=== PATIENT | female | born 1970 | race Caucasian/White ===

== ENCOUNTER 2020-11-21 03:54 | Emergency (ER) | payer OTHER ==
--- NOTE | 2020-11-21 02:55 | EDM.PDOC ---
ED HPI GENERAL MEDICAL PROBLEM - General Stated Complaint: TOOTH PAIN Time Seen by Provider: 11/21/20 03:54 Source of Information: Reports: Patient History Limitations: Reports: No Limitations - History of Present Illness INITIAL COMMENTS - FREE TEXT/NARRATIVE: 50-year-old female presents for dental pain. Patient notes history of root canal on her left upper tooth in 2018. She notes that since Sunday, 2 days ago, she has been experiencing pain in that side of her mouth. She has an appointment with a dentist next week, but overnight the pain became unbearable prompting her to come to the emergency department. She notes some pain with swallowing but denies any difficulty swallowing, difficulty tolerating her secretions, difficulty breathing, fevers. L upper tooth Pain Score (Numeric/FACES): 10 - Related Data Allergies Allergy/AdvReac Type Severity Reaction Status Date / Time penicillin V Allergy Cannot Verified 11/21/20 04:01 Remember Home Meds: Home Meds Acetaminophen/oxyCODONE [Percocet 325-5 MG] 1 each PO Q4H PRN #12 tab 11/21/20 [Rx] clindamycin HCL [Clindamycin HCl] 450 mg PO Q8H 7 Days #63 capsule 11/21/20 [Rx] ED ROS GENERAL - Review of Systems Review Of Systems: Comprehensive ROS is negative, except as noted in HPI. ED EXAM, GENERAL - Physical Exam Exam: See Below Exam Limited By: No Limitations General Appearance: Alert, WD/WN, No Apparent Distress Throat/Mouth: Normal Lips, Normal Oropharynx, Normal Voice, No Airway Compromise, Other (poor dentition with erythema of left upper gums) Head: Atraumatic, Normocephalic Neck: Normal Inspection Respiratory/Chest: No Respiratory Distress, No Accessory Muscle Use Cardiovascular: Normal Peripheral Pulses Extremities: Normal Inspection Neurological: Alert, Normal Gait Psychiatric: Normal Affect, Normal Mood Skin Exam: Warm, Dry, Intact, Normal Color Course - Vital Signs Last Recorded V/S: Last Vital Signs Temp 7.9 F L 11/21/20 04:01 Pulse 78 11/21/20 04:01 Resp 18 11/21/20 04:01 BP 115/78 11/21/20 04:01 Pulse Ox 97 11/21/20 04:01 - Orders/Labs/Meds Orders: Active Orders 24 hr Category Date Time Status clindamycin HCL [Cleocin] Med 11/21/20 04:11 Stat 450 mg PO STAT STA Meds: Medications Discontinued Medications Generic Name Dose Route Start Last Admin Trade Name Freq PRN Reason Stop Dose Admin Amoxicillin/Clavulanate Potassium 1 tab 11/21/20 03:55 Amoxicillin/Clavulanate K 875-125 Mg Tab PO 11/21/20 03:56 ONETIME ONE Benzocaine 2 each 11/21/20 03:55 Benzocaine 20% Topical [place] [facility] MUCMEM 11/21/20 03:56 ONETIME ONE Lidocaine HCl 20 ml 11/21/20 03:55 11/21/20 04:08 Lidocaine 2% Viscous Solution 100 Ml Bottle PO 11/21/20 03:56 Not Given ONETIME ONE Lidocaine HCl 15 ml 11/21/20 04:07 Lidocaine 2% Viscous Solution 15 Ml Cup PO 11/21/20 04:08 ONETIME ONE Lidocaine HCl Confirm 11/21/20 04:05 Lidocaine 2% Viscous Solution 15 Ml Cup Administered 11/21/20 04:06 Dose 15 ml .ROUTE .STK-MED ONE Oxycodone/Acetaminophen 1 tab 11/21/20 03:55 Acetaminophen/Oxycodone 325-5 Mg Tab PO 11/21/20 03:56 ONETIME ONE - Re-Assessments/Exams Free Text/Narrative Re-Assessment/Exam: 11/21/20 04:13 We will give 1 dose of clindamycin in emergency department. Will treat pain with Percocet and dental balls. Will discharge patient with Rx for clindamycin and recommend dental follow-up in the next few days. Return precautions discussed Departure - Departure Time of Disposition: 04:13 Disposition: Home, Self-Care 01 Condition: Good Clinical Impression: Pain, dental - Discharge Information Prescriptions: clindamycin HCL [Clindamycin HCl] 450 mg PO Q8H 7 Days #63 capsule Acetaminophen/oxyCODONE [Percocet 325-5 MG] 1 each PO Q4H PRN #12 tab PRN Reason: Pain Instructions: Dental Abscess, [id number] Additional Instructions: The following information is given to patients seen in the emergency department who are being discharged to home. This information is to outline your options for follow-up care. We provide all patients seen in our emergency department with a follow-up referral. The need for follow-up, as well as the timing and circumstances, are variable depending upon the specifics of your emergency department visit. If you don't have a primary care physician on staff, we will provide you with a referral. We always advise you to contact your personal physician following an emergency department visit to inform them of the circumstance of the visit and for follow-up with them and/or the need for any referrals to a consulting specialist. The emergency department will also refer you to a specialist when appropriate. This referral assures that you have the opportunity for follow-up care with a specialist. All of these measure are taken in an effort to provide you with optimal care, which includes your follow-up. Under all circumstances we always encourage you to contact your private physician who remains a resource for coordinating your care. When calling for follow-up care, please make the office aware that this follow-up is from your recent emergency room visit. If for any reason you are refused follow-up, please contact the [facility] Emergency Department at and asked to speak to the emergency department charge nurse. Please follow up with your primary care physician. If you do not have a primary care physician, see below: [facility] [address] [place] [address] [id number] [address] [facility] [address] [place] [id number] Sepsis Event Note (ED) - Focused Exam Vital Signs: Vital Signs Temp Pulse Resp BP Pulse Ox 11/21/20 04:01 7.9 F L 78 18 115/78 97 - My Orders Last 24 Hours: My Active Orders 11/21/20 04:11 clindamycin HCL [Cleocin] 450 mg PO STAT STA - Assessment/Plan Last 24 Hours: My Active Orders 11/21/20 04:11 clindamycin HCL [Cleocin] 450 mg PO STAT STA
[2020-11-21] MEDS ORDERED: Acetaminophen/oxyCODONE 325-5 MG Tab PO ONE (03:55)
[2020-11-21] MEDS ORDERED: Benzocaine 20% Topical Spray UD MUCMEM ONE (03:55)
[2020-11-21] MEDS ORDERED: Lidocaine 2% Viscous Solution 100 ML Bottle PO ONE (03:55)
[2020-11-21] MEDS ORDERED: Amoxicillin/Clavulanate K 875-125 MG Tab PO ONE (03:55)
[2020-11-21] MEDS ORDERED: Lidocaine 2% Viscous Solution 15 ML Cup ONE (04:05)
[2020-11-21] MEDS ORDERED: Lidocaine 2% Viscous Solution 15 ML Cup PO ONE (04:07)
[2020-11-21] MEDS ORDERED: Clindamycin HCl 150 MG Cap PO STA (04:11)
== END 2020-11-21 04:28 | disposition home or self-care (01) ==
LOC: MW.ED 03:54
DX: K08.89 Other specified disorders of teeth and supporting structures (principal); Z88.0 Allergy status to penicillin
CPT/HCPCS: 99282; A9270